=== PATIENT | male | born 1985 | race Asian ===

== ENCOUNTER 2018-12-08 18:10 | Observation (INO) | payer OTHER, SELFPAY ==
[~2018-12-08 18:10] MED LIST: Ketorolac Tromethamine 30 MG/ML VIAL ONE; Lidocaine 1% PF 5 ML VIAL ONE; Ondansetron PF 4 MG/2 ML Vial ONE; PROPOFOL 200 MG/20 ML VIAL ONE; Rocuronium Bromide 10 MG/ML (10ML VIAL) ONE; Succinylcholine Chloride 20 MG/ML 10 ml SYRINGE FS ONE
[2018-12-08] MEDS ORDERED: Adacel (T-DAP) 0.5 ML SYRINGE ONE (18:42)
[2018-12-08] MEDS ORDERED: Ketorolac Tromethamine 30 MG/ML VIAL ONE (20:40)
[2018-12-08] MEDS ORDERED: Bupivacaine PF 0.5% 30 ML VIAL ONE (21:06)
[2018-12-08] MEDS ORDERED: Betamet Acet/Betamet Na Ph 30 MG/5 ML VIAL ONE (21:06)
[2018-12-08] MEDS ORDERED: Bacitracin Zinc Ointment 30 gm TUBE ONE (21:06)
[2018-12-08] MEDS ORDERED: Sodium Chloride 0.9% 30 ML ONE (21:50)
[2018-12-08] MEDS ORDERED: Fentanyl 100 MCG/2 ML VIAL ONE (22:17)
[2018-12-08] MEDS ORDERED: Midazolam HCl 2 mg/2 ml Vial ONE (22:17)
[2018-12-08] MEDS ORDERED: traMADol HCl 50 MG TAB PO PRN (22:38)
[2018-12-08] MEDS ORDERED: Fentanyl 100 MCG/2 ML VIAL SLOW IVP PRN (22:38)
[2018-12-08] MEDS ORDERED: Ondansetron PF 4 MG/2 ML Vial IV PRN (22:38)
[2018-12-08] MEDS ORDERED: Morphine 4 MG/ML VIAL SLOW IVP PRN (22:38)
[2018-12-08] MEDS ORDERED: HYDROcodone/Acetaminophen 5/325 mg Tablet PO PRN (22:38)
[2018-12-08] MEDS ORDERED: Meperidine HCl/PF 25 MG/ML VIAL IM PRN (22:40)
[2018-12-08] MEDS ORDERED: Ketorolac Tromethamine 30 MG/ML VIAL IVP PRN (22:40)
[2018-12-08] MEDS ORDERED: Communication Order-Pharmacy FS SCH (22:45)
[2018-12-09] MEDS ORDERED: Promethazine HCl 25 MG/ML VIAL IM PRN (00:17)
[2018-12-09] MEDS ORDERED: Ondansetron HCl/PF 4 MG/2 ML Vial IVP PRN (00:17)
[2018-12-09] MEDS ORDERED: Promethazine HCl 25 MG/ML VIAL SLOW IVP PRN (00:17)
[2018-12-09] MEDS: Ketorolac Tromethamine 30 MG/ML VIAL IVP SCH ×3 (01:00→13:13)
[2018-12-09 01:55] VITALS: BMI 25.5
[2018-12-09] MEDS ORDERED: TETANUS AND DIPHTHERIA TOX/PF 0.5 ML DISP.SYRIN IM SCH (09:00)
[2018-12-09] MEDS ORDERED: Aspirin 81 mg Enteric Coated Tablet PO SCH (09:00)
[2018-12-09] MEDS ORDERED: Vancomycin HCl 1 GM in Premix Bag 1 BAG IVPB SCH (09:00)
--- NOTE | 2018-12-09 10:49 | OP ---
DATE OF PROCEDURE: 12/09/2018 PREOPERATIVE DIAGNOSES: 1. Wound with tendon involvement. Findings, four extensor tendons lacerated, which were the extensor carpi radialis brevis, extensor carpi radialis longus, extensor pollicis longus and abductor pollicis longus. 2. The patient underwent a superficial radial nerve neuroplasty. PROCEDURES PERFORMED: 1. Debridement of wound. 2. Debridement of bone: The patient had the knife cut went through the tendon that made a 1 cm x 3 mm bone impression, i.e., fracture, which required debridement of the material associated with open fracture, so therefore, that occurred as well. 3. Debridement of wound D. 4. Extensor carpi radialis brevis repair, complete 2. 5. Extensor carpi radialis longus repair, complete 3. 6. Abductor pollicis longus repair, complete 4. Abductor pollicis longus repair, complete. We performed the superficial radial nerve neuroplasty. Then, closure wound 5 cm. 7. Application of short-arm splint. COMPLICATIONS: None. TOURNIQUET TIME: 95 minutes. ESTIMATED BLOOD LOSS: Less than 10 mL. INDICATIONS: The patient with sharp knife wound while performing activities at home. This included down to and including the bone. The loss of active wrist extensors, but the digits extended except for the thumb, which did not extend and weak abduction. DESCRIPTION OF PROCEDURE: After successful general endotracheal anesthesia, the limb was prepped and draped. Time-out was done appropriately. We then gave him approximately 30 mL of 0.5% Marcaine block along with an outline zigzag incision beginning distal and distal radial and proximal ulna from the transverse incision. We extended it, carried through skin and subcutaneous tissue, mainly do the superficial radial nerve neuroplasty and although, we had normal sensation in emergency room in its distribution preop. The laceration was so closed. We decided to do neuroplasty to make sure was intact. Brachioradialis was intact. We then noticed that next to the extensor carpi radialis brevis was completely cut and retracted approximately 8 mm and then the extensor pollicis longus was also lacerated along with abductor pollicis longus. There was no evidence of extensor digitorum communis injury. The patient then had the wound irrigated and debrided with curette and debrided material associated with fracture was a few fragments. No gross contamination. We used tenotomy scissors along with [place] blade to debride the tendon edges to make this move, and then this was excisional technique and we did not find a gross contamination. The patient had the 4 tendons repaired each using the modified Brown-Emma six-strand repair, which was over sewed with a 5-0 Prolene epitenon. The patient then had testing of the wrist flex all the way to 60 degrees. No stress on either sutures, thumb brought across the oppose the small finger base. No stress on the suture line was seen. No gapping. The patient then had tourniquet deflated. We then closed the wound in 2 layers with a running 4-0 Monocryl first, then interrupted 4-0 nylon mattress pattern. He had a splint applied short-arm with the wrist in 30 degrees dorsiflexion, the thumb abducted in the near out to the level of the nail bed on a separate splint and the patient left the operating room without evidence of anesthetic operative complication. Job ID: [id number]
[2018-12-09 11:50] VITALS: BP 120/83; TEMP 98.2
--- NOTE | 2019-01-19 06:25 | PQF ---
[facility] POST DISCHARGE CLINICAL DOCUMENTATION IMPROVEMENT CLARIFICATION FORM l Todays Date: 01/19/19 l Patients Name SABRINA GOFF l l Admit Date 12/09/18 l Disch Date 12/09/18 Product Transfer Pumper Name Brent Lopez Email: [email or web address] Cell: [phone] To be completed by Product Transfer Pumper: Present Clinical Indicators - Signs / Symptoms Results and Location in Medical Record [ ] Documentation of: [ ] [ ] Documentation of: [ ] [ ] Documentation of: [ ] [ ] Documentation of: [ ] [ ] Risks [ ] [ ] [ ] Treatment [ ] Forearm Tendon Laceration Query for laterality of procedure. Conflicting laterality within scanned documentation in EMR: As per H&P LT, as per [facility] report RT, as per ED provider note both LT and RT are indicated, as per OP report no laterality indicated. Thank you. [ ] [ ] To be completed by Physician: ZANE COX The documentation in this patients record requires clarification to ensure coding compliance and accuracy. Check the appropriate box and include in your discharge summary. [ ] [ ] [ ] [ ] Please check this box if this does not apply to this patient [ ] Unable to determine [ ] Other diagnosis: Review the following information and exercise your independent professional judgment in responding to the clarification. Based upon the clinical findings, risk factors, and treatment, please clarify if you are treating one of the above probable or suspected diagnoses. Physician Signature: Date Time MTDD
== END 2018-12-09 13:10 | disposition home or self-care (01) ==
LOC: ERS 18:10 → SDC/OP 22:00 → SURG B 12-09 00:28
PROVIDERS: ADMIT Orthopaedic Surgery Hand Surgery; ATTEND Orthopaedic Surgery Hand Surgery
PROC: 0PBK0ZZ Excision of Right Ulna, Open Approach (ICD-10-PCS; principal; 2018-12-09)
PROC: 0LQ50ZZ Repair Right Lower Arm and Wrist Tendon, Open Approach (ICD-10-PCS; 2018-12-09)
DX: S56.321A Laceration of extensor or abductor muscles, fascia and tendons of right thumb at forearm level, initial encounter (principal); S51.811A Laceration without foreign body of right forearm, initial encounter; T14.8XXA Other injury of unspecified body region, initial encounter; F17.210 Nicotine dependence, cigarettes, uncomplicated; Z79.2 Long term (current) use of antibiotics; W26.0XXA Contact with knife, initial encounter; Y99.0 Civilian activity done for income or pay; Y92.009 Unspecified place in unspecified non-institutional (private) residence as the place of occurrence of the external cause
CPT/HCPCS: 90471; 90715; 96365; 96367; 96372; 96375; G0378; J0702; J1885; J2001; J2250; J2405; J2704; J3010; J3370; J3490; S0020